=== PATIENT | male | born 1990 | race Caucasian/White ===

== ENCOUNTER 2024-08-26 15:23 | Emergency (ER) | payer OTHER, SELFPAY ==
[2024-08-26 15:30] VITALS: BP 138/89; PULSE 67; RESP 16; TEMP 36.9; O2SAT 98; BMI 27.0
--- NOTE | 2024-08-26 17:48 | ED_ITS ---
HPI - Eye Problem <Radha Wiggins PA-C - Last Filed: 08/26/24 19:54> General Chief complaint: Eye Problems Stated complaint: Debris Hit L Eye Time Seen by Provider: 08/26/24 17:48 Source: patient Mode of arrival: Family Vehicle History of Present Illness HPI Narrative: Mr. Sanders is a pleasant 33-year-old male with no reported past medical history who presents to the emergency department for left eye irritation after getting hit in the eye with wood earlier today. Patient reports he was at work this afternoon when he was removing shingles and a piece of wood from the roof hit him in the left side of the face, scratching his left eye. States that he has had mild redness and irritation of the eye since then. He bought [id number] sterile eyedrops at the drugstore to try to flush his eye. States that when he blinks his left eye the pain is exacerbated. Denies blurry vision however when he was having his visual acuity tested in the ER he realized that his left eye vision was slightly decreased compared to the right. Denies spots, specks, flashing lights. Denies contact lens use. He does use reading glasses. Reports that his left eyebrow was hit with the wood however he denies loss of consciousness, nausea or vomiting after the event, headache, etc. His Tdap was updated in January of 2024. Related Data Previous Rx's Medication Instructions Recorded erythromycin 5 mg/gram (0.5 %) eye 1 cm EYE-LEFT QID 5 days #3.5 grams 08/26/24 ointment Review of Systems <Radha Wiggins PA-C - Last Filed: 08/26/24 19:54> Review of Systems ROS Unobtainable: All systems reviewed & are unremarkable except as noted in HPI and below Exam <Radha Wiggins PA-C - Last Filed: 08/26/24 19:54> Narrative Exam Narrative: GENERAL: 33 year old patient appears stated age. Well-developed patient, in no acute distress. HEAD: Atraumatic. Normocephalic. No ecchymosis facial bones, no crepitus of left periorbital region. EYES: PERRL. Extraocular motions intact. Left eye with erythema of conjunctiva. On fluorescein eye exam, the patient has for small, approximately 1 mm, corneal abrasions. Three are located at the lateral edge of the iris, one is located the medial iris. Negative Tony sign. No pain with extraocular movements or pupillary constriction. Gross vision intact. ENT: Nose without bleeding, purulent drainage. Throat without erythema, tonsillar hypertrophy or exudate. Airway patent. NECK: Trachea midline. Cervical ROM intact. CARDIOVASCULAR: Regular rate and rhythm. RESPIRATORY: ?Nonlabored respirations. ?Speaking in clear, full sentences. ?Clear to auscultation. Breath sounds equal bilaterally. No wheezes, rales, or rhonchi. ? EXTREMITIES: No edema or joint tenderness. BACK: Nontender without deformity or crepitance. No flank tenderness. NEURO: AOx3. ?Clear speech. ?Moves all 4 extremities appropriately. SKIN: No rash or erythema of visible areas Initial Vital Signs Initial Vital Signs: Vital Signs Temperature 98.4 F 08/26/24 15:30 Pulse Rate 67 08/26/24 15:30 Respiratory Rate 16 08/26/24 15:30 Blood Pressure 138/89 08/26/24 15:30 Pulse Oximetry 98 08/26/24 15:30 Oxygen Delivery Method Room Air 08/26/24 15:30 <Luis Allison DO - Last Filed: 08/26/24 20:04> Initial Vital Signs Initial Vital Signs: Vital Signs Temperature 98.4 F 08/26/24 15:30 Pulse Rate 67 08/26/24 15:30 Respiratory Rate 16 08/26/24 15:30 Blood Pressure 138/89 08/26/24 15:30 Pulse Oximetry 98 08/26/24 15:30 Oxygen Delivery Method Room Air 08/26/24 15:30 Course <Radha Wiggins PA-C - Last Filed: 08/26/24 19:54> Orders Ordered: Discontinued Medications Erythromycin (Erythromycin Ophth 1 Gm Oint) 1 applic EYE-LEFT NOW ONE Stop: 08/26/24 18:13 Last Admin: 08/26/24 18:19 Dose: 1 applic Documented By: MPO Fluorescein Sodium (Fluorescein 1 Mg Strip) 1 mg EYE-BOTH NOW ONE Stop: 08/26/24 17:44 Last Admin: 08/26/24 17:49 Dose: 1 mg Documented By: MPO Proparacaine HCl (Proparacaine 0.5% Ophth No) 1 drops EYE-BOTH NOW ONE Stop: 08/26/24 17:43 Last Admin: 08/26/24 17:49 Dose: 1 drops Documented By: MPO Vital Signs Vital signs: Vital Signs - 8 hr 08/26/24 15:30 08/26/24 18:29 Temperature 98.4 F 98.6 F Pulse Rate 67 65 Respiratory Rate 16 20 Blood Pressure 138/89 140/88 Pulse Oximetry 98 98 Oxygen Delivery Method Room Air Room Air <Luis Allison DO - Last Filed: 08/26/24 20:04> Orders Ordered: Discontinued Medications Erythromycin (Erythromycin Ophth 1 Gm Oint) 1 applic EYE-LEFT NOW ONE Stop: 08/26/24 18:13 Last Admin: 08/26/24 18:19 Dose: 1 applic Documented By: MPO Fluorescein Sodium (Fluorescein 1 Mg Strip) 1 mg EYE-BOTH NOW ONE Stop: 08/26/24 17:44 Last Admin: 08/26/24 17:49 Dose: 1 mg Documented By: MPO Proparacaine HCl (Proparacaine 0.5% Ophth No) 1 drops EYE-BOTH NOW ONE Stop: 08/26/24 17:43 Last Admin: 08/26/24 17:49 Dose: 1 drops Documented By: MPO Vital Signs Vital signs: Vital Signs - 8 hr 08/26/24 15:30 08/26/24 18:29 Temperature 98.4 F 98.6 F Pulse Rate 67 65 Respiratory Rate 16 20 Blood Pressure 138/89 140/88 Pulse Oximetry 98 98 Oxygen Delivery Method Room Air Room Air MDM - Eye Problem <Radha Wiggins PA-C - Last Filed: 08/26/24 19:54> [facility] Narrative Medical decision making narrative: 33-year-old male presents to the emergency department for left eye irritation after being struck in the face with wood earlier today. Tdap is up-to-date. Differential diagnosis includes but is not limited to corneal abrasion, corneal laceration, ocular foreign body, globe rupture, conjunctivitis, other. On exam the patient is in no acute distress, nontoxic-appearing. He drove himself here and is gross vision is intact. He does have erythema and irritation of the left eye on visual examination. No obvious foreign bodies. Proparacaine was used to anesthetize the left eye immediate improvement in eye irritation symptoms. Eye was flushed with saline. A fluorescein eye exam was performed revealing for small corneal abrasions on the left eye. Negative Tony sign. No signs of periorbital trauma on exam. Patient has gross vision is intact and he has no pain with extraocular movements. We will treat patient with erythromycin ophthalmic ointment for corneal abrasions. He does not wear contact lenses. Provided him with ophthalmology follow up. Discussed signs and symptoms to return to the ER for. Patient verbalized understanding of all information and is stable for discharge. Discharge Plan Departure Patient Disposition: Home Clinical Impression: Corneal abrasion Qualifiers: Encounter type: initial encounter Laterality: left Qualified Code(s): S05.02XA - Injury of conjunctiva and corneal abrasion without foreign body, left eye, initial encounter Instructions: DI for Corneal Abrasion Activity Restrictions/Additional Instructions: Today your exam revealed for small corneal abrasions to the left eye. I have sent antibiotic eye ointment to the [facility] here in [place]. It is very important that you complete the full course ophthalmic ointment and follow up with an eye doctor. Call to schedule an appointment with an ophthalmology doctor here in [place], Dr. Recinos or Dr. Britton. Please follow up with your primary care doctor within the next 2-3 days for ER follow-up. (If you do not have a PCP you can call [phone]. ?to schedule an appointment with an [facility] Primary Care Provider) IF YOU DEVELOP ANY NEW OR WORSENING SYMPTOMS, RETURN TO THE ER! Please read the attached instructions, they highlight more specific treatments a nd interventions for you at home. Thank you for letting me participate in your care, Radha Wiggins PA-C Prescriptions: New erythromycin 5 mg/gram (0.5 %) ointment 1 cm EYE-LEFT QID 5 Days Qty: 3.5 0RF Stand Alone Forms: Patient Portal/API/Survey ED Sign-out <Luis Allison, DO - Last Filed: 08/26/24 20:04> Cosign ED Attending Cosignature Attestation: Dr Allison Co-Sign Statement: I was available for consultation during this patient's emergency department visit. This chart is signed by myself for administrative purposes only. I did not have direct contact with this patient during this visit. They were seen independently by the APC.
[2024-08-26] MEDS: PROPARACAINE 0.5% OPHTH SOL 1 DROPS EYE-BOTH (17:49)
[2024-08-26] MEDS: FLUORESCEIN 1 MG STRIP EYE-BOTH (17:49)
[2024-08-26] MEDS: ERYTHROMYCIN OPHTH 1 GM OINT 1 APPLIC EYE-LEFT (18:19)
[2024-08-26 18:29] VITALS: BP 140/88; PULSE 65; RESP 20; TEMP 37; O2SAT 98
== END 2024-08-26 18:30 | disposition home or self-care (01) ==
PROVIDERS: Emergency Provider Physician Assistant
DX: S05.02XA Injury of conjunctiva and corneal abrasion without foreign body, left eye, initial encounter (principal)
CPT/HCPCS: 99282